=== PATIENT | male | born 1970 | race Hispanic/Latino ===

== ENCOUNTER 2017-10-20 11:20 | Emergency (ER) | payer SELFPAY ==
[~2017-10-20] VITALS: Ht 177.8 cm; Wt 100.0 kg
[~2017-10-20 11:20] MED LIST: BLEPH-1010 % OU; NORCO1 TA1 PO
[2017-10-20] MEDS ORDERED: IBUPROFEN600 MG PO (12:02)
[2017-10-20 12:10] VITALS: BP 157/88
== END 2017-10-20 12:10 | disposition home or self-care (01) | DRG 563 ==
LOC: ED 11:20
DX: S29.012A Strain of muscle and tendon of back wall of thorax, initial encounter (principal); S20.222A Contusion of left back wall of thorax, initial encounter; M10.9 Gout, unspecified; W11.XXXA Fall on and from ladder, initial encounter; Y92.009 Unspecified place in unspecified non-institutional (private) residence as the place of occurrence of the external cause

== ENCOUNTER 2017-12-03 18:36 | Emergency (ER) | payer SELFPAY ==
[~2017-12-03] VITALS: Ht 177.8 cm; Wt 96.0 kg
[~2017-12-03 18:36] MED LIST changes: +IBUPROFEN600 MG PO
[2017-12-03] MEDS ORDERED: SULFACET SOD10 % OD (19:16)
[2017-12-03 19:18] VITALS: BP 147/79
== END 2017-12-03 19:25 | disposition home or self-care (01) | DRG 125 ==
LOC: ED 18:36
DX: S05.01XA Injury of conjunctiva and corneal abrasion without foreign body, right eye, initial encounter (principal); X58.XXXA Exposure to other specified factors, initial encounter

== ENCOUNTER 2019-04-07 06:04 | Emergency (ER) | payer SELFPAY ==
[~2019-04-07] VITALS: Ht 177.8 cm; Wt 90.0 kg
[~2019-04-07 06:04] MED LIST changes: +SULFACET SOD10 % OD
[2019-04-07] MEDS ORDERED: ALLOPURINOL100 MG PO (06:26)
[2019-04-07 06:46] LABS: HEMATOCRIT 42.2 % (39.0-50.0); HEMOGLOBIN 14.6 g/dl (14.0-18.0); IMMATURE GRANULOCYTES 0.2 % (0.0-5.0); MEAN CELL VOLUME 93.8 fL CALC (80.0-100.0); MEAN CORPUSCULAR HGB 32.4 pG CALC (26.0-32.0); MEAN CORPUSCULAR HGB CONC 34.6 g/L CALC (32.0-36.0); NEUT# 1.9 thou/uL (1.82-7.42); RED BLOOD COUNT 4.5 mill/uL (4.70-6.10); RED CELL DISTRI WIDTH 12.6 % (11.5-15.5)
[2019-04-07 06:47] LABS: URINE BILIRUBIN - DIPSTICK NEGATIVE (NEGATIVE); URINE BLOOD DIPSTICK MODERATE (NEGATIVE); URINE COLOR YELLOW; URINE GLUCOSE - DIPSTICK NEGATIVE (NEGATIVE); URINE KETONE NEGATIVE (NEGATIVE); URINE NITRITE - DIPSTICK NEGATIVE (Negative); URINE PROTEIN - DIPSTICK NEGATIVE (NEG-TRACE); URINE SPECIFIC GRAVITY <=1.005; URINE UROBILINOGEN - DIPSTICK 0.2 E.U./dL (0.2)
[2019-04-07 06:53] LABS: URINE LEUK ESTERASE NEGATIVE (NEGATIVE)
[2019-04-07 07:06] LABS: URINE BACTERIA RARE hpf; URINE EPITHELIAL CELLS RARE EPI/hpf (0-FEW)
[2019-04-07 07:12] LABS: ALBUMIN 4.4 g/dL (3.2-5.0); ALKALINE PHOSPHATASE 74 u/l (38-126); AMYLASE 70 u/l (30-110); ANION GAP 16 (6-22 (CALC)); BILIRUBIN, TOTAL 0.7 mg/dL (0.0-1.4); BUN 12 mg/dL (9-20); BUN/CREATININE RATIO 20 (12-20 (CALC)); CARBON DIOXIDE 21 mmol/l (22-30); CHLORIDE 104 mmol/l (95-108); CREATININE 0.6 mg/dL (0.7-1.3); GFR > 60 ML/MIN (>=60 (CALC)); GFR FOR AFR.AMER. > 60 ML/MIN (>=60 (CALC)); LIPASE 107 u/l (23-300); POTASSIUM 4.1 mmol/l (3.5-5.1); SGOT/AST 46 u/l (17-59); SODIUM 137 mmol/l (137-146); TOTAL PROTEIN 7.5 g/dL (6.3-8.2)
[2019-04-07] MEDS ORDERED: TAMSULOSIN0.4 MG PO (08:50)
[2019-04-07] MEDS ORDERED: HYDROCO/APAP1 TA9 PO (08:50)
[2019-04-07 09:07] VITALS: BP 161/74
== END 2019-04-07 09:19 | disposition home or self-care (01) | DRG 694 ==
LOC: ED 06:04
PROVIDERS: Emergency Medicine
DX: N13.2 Hydronephrosis with renal and ureteral calculous obstruction (principal); Z87.442 Personal history of urinary calculi

== ENCOUNTER 2023-11-25 08:30 | Day surgery (SDC) | payer SELFPAY ==
[~2023-11-25] VITALS: Ht 175.3 cm; Wt 86.2 kg
[~2023-11-25 08:30] MED LIST changes: +ALLOPURINOL100 MG PO; +BACTRIM DS1 TAB PO; +HYDROCO/APAP1 TA9 PO; +LOSARTAN POTASS25 MG PO; +MOTRIN800 MG PO; +TAMSULOSIN0.4 MG PO
[2023-11-25] MEDS ORDERED: FAMOTIDINE 10MG/ML 2ML SDV IV ONE (08:34)
[2023-11-25] MEDS ORDERED: LACTATED RINGER'S 1,000 ML IV ONE (08:35)
[2023-11-25] MEDS ORDERED: SODIUM CHLORIDE 0.9% 100 ML IV ONE (08:35)
[2023-11-25] MEDS ORDERED: ceFAZolin Sodium 2 GM/VIAL SDV ONE (08:35)
[2023-11-25] MEDS ORDERED: STERILE WATER FOR IRRIGATION 1,000 ML BTL IR ONE (09:13)
[2023-11-25] MEDS ORDERED: LIDOcaine HCl 1% (Local Anesth.) 20 ML VIAL ONE (09:13)
[2023-11-25] MEDS ORDERED: SODIUM CHLORIDE 1,000 ML BTL IR ONE (09:13)
[2023-11-25] MEDS ORDERED: PERCOCET 5/325M1 TAB PO (10:43)
[2023-11-25] MEDS ORDERED: ACETAMINOPHEN 100 ML IV ONE (11:48)
[2023-11-25] MEDS ORDERED: HYDROmorphone HCL 2 MG/AMP ONE (11:51)
[2023-11-25 12:35] VITALS: BP 138/86
[2023-11-25] MEDS ORDERED: LIDOCAINE HCL 2% 2ML SDV IV ONE (14:13)
[2023-11-25] MEDS ORDERED: ROCURONIUM BROMIDE 10 MG/ML 5ML VIAL IV ONE (14:13)
[2023-11-25] MEDS ORDERED: DEXAMETHASONE SODIUM PHOSPHATE PF 10 MG/ML SDV IV ONE (14:13)
[2023-11-25] MEDS ORDERED: ONDANSETRON HCl 4 MG/2 ML SDV IV ONE (14:13)
[2023-11-25] MEDS ORDERED: PROPOFOL 200 MG/20 ML VIAL IV ONE (14:13)
[2023-11-25] MEDS ORDERED: KETOROLAC TROMETHAMINE 30 MG/ML SDV IV ONE (14:13)
[2023-11-25] MEDS ORDERED: SUGAMMADEX SODIUM 200 MG/2 ML SDV IV ONE (14:13)
[2023-11-25] MEDS ORDERED: SUCCINYLCHOLINE CHLORIDE 20 MG/ML 10ML VIAL IV ONE (14:13)
== END 2023-11-25 12:55 | disposition home or self-care (01) | DRG 355 ==
LOC: ORM 08:30
PROVIDERS: ATTEND Surgery
PROC: 0WQF0ZZ Repair Abdominal Wall, Open Approach (ICD-10-PCS; principal; 2023-11-25)
DX: K42.9 Umbilical hernia without obstruction or gangrene (principal)
CPT/HCPCS: J0131; J0690; J1100